=== PATIENT | female | born 1975 | race African-American/Black ===

== ENCOUNTER 2017-06-26 20:15 | Inpatient (IN) | payer OTHER ==
[2017-06-26 21:29] LABS: BASOPHIL 0.9 % (0-2.0); EOSINOPHIL 1.2 % (0-4.5); MCH 30.8 pg (25.7-33.7); MCHC 33.6 g/dl (32.0-36.0); MEAN CELL VOLUME 91.6 fl (80-96); MEAN PLT VOLUME 9.9 fl (7.5-11.1); NEUTROPHILS 65.3 % (42.8-82.8); PLATELET COUNT 147 K/MM3 (134-434); RDW 15.4 % (11.6-15.6); WHITE BLOOD COUNT 7.8 K/mm3 (4.0-10.0)
[2017-06-26 21:48] LABS: INR 0.92 (0.82-1.09); PROTHROMBIN TIME (PATIENT) 10.1 SEC (9.98-11.88)
[2017-06-26 21:51] LABS: ACTIVATED PTT 28.1 SECONDS (26.9-34.4); ANION GAP 8 (8-16); CALCIUM 9.3 mg/dL (8.5-10.1); CO2 23 mmol/L (21-32); CREATININE 0.8 mg/dL (0.55-1.02); GLUCOSE,RANDOM 137 mg/dL (74-106)
[2017-06-26 22:11] VITALS: BMI 25.8
[2017-06-26 22:28] LABS: HIV 1 & 2 AB NEGATIVE; HIV 1 AGp24 NEGATIVE
[2017-06-26] MEDS ORDERED: DINOPROSTONE 10 MG VAGINAL SUPPOSITORY VG ONE (22:55)
[2017-06-26] MEDS ORDERED: PROMETHAZINE HCL 25 MG/1 ML VIAL IVPUSH ONE (22:59)
[2017-06-26] MEDS ORDERED: BUTORPHANOL TARTRATE 1 MG/ML VIAL IVPB ONE (22:59)
--- NOTE | 2017-06-26 22:59 | HP ---
Past Medical History - Admission History of Present Illness: 42 yo @ 39 4/7 wks by first trimester ultrasound, EDC 06/29/2017 complicated by: 1. Hypothyroidism - hx/o Kassandra's disease 2. AMA - normal genetic screening 3. IVF 4. GBS positive Patient was seen today for routine ultrasound and noted to have oligohydramnios. She reports movement, denies leakage of fluid or vaginal bleeding. She denies contractions. History Source: Patient - Past Medical History Cardiovascular: No: HTN Pulmonary: No: Asthma Gastrointestinal: No: GERD ...: 2 ...Para: 0 ...Term: 0 ...: 0 ...Spon : 1 ...Induced : 0 ...Multiple Gestation: 0 ...EDC by [facility]: 06/29/17 Heme/Onc: No: Anemia Endocrine: Yes: Hypothyroidism - Past Surgical History Hx Myomectomy: No Hx Transabdominal Cerclage: No Additional Surgical History: 2012 - Laparscopic left ovarian cystectomy - Smoking History Smoking history: Never smoked Have you smoked in the past 12 months: No - Alcohol/Substance Use Hx Alcohol Use: No History of Substance Use: reports: None - Social History History of Recent Travel: No Home Medications - Allergies Allergies/Adverse Reactions: Allergies Allergy/AdvReac Type Severity Reaction Status Date / Time metronidazole [From Flagyl] Allergy Severe Hives Verified 06/26/17 21:20 Metronidazole HCl Allergy Severe Hives Verified 06/26/17 21:20 [From Flagyl] - Home Medications Home Medications: Ambulatory Orders Vitamins ([facility]) - [ .Vitamins *Rx*] 1 tab PO DAILY 01/20/13 Levothyroxine [Synthroid -] 100 mcg PO DAILY 04/23/17 Family Disease History - Family Disease History Family History: Denies Review of Systems - Review of Systems Constitutional: reports: No Symptoms Cardiovascular: reports: No Symptoms Respiratory: reports: No Symptoms Gastrointestinal: reports: No Symptoms Genitourinary: reports: No Symptoms Musculoskeletal: reports: No Symptoms Neurological: reports: No Symptoms Hematology/Lymphatic: reports: No Symptoms Psychiatric: reports: No Symptoms Physical Exam - Maternity Vital Signs: Vital Signs Temperature 98.7 F 06/26/17 22:00 Pulse Rate 73 06/26/17 22:00 Respiratory Rate 18 06/26/17 22:00 Blood Pressure 131/70 06/26/17 22:00 O2 Sat by Pulse Oximetry (%) Constitutional: Yes: Well Nourished, No Distress, Calm HENT: Yes: Atraumatic Cardiovascular: Yes: Regular Rate and Rhythm Lungs: Clear to auscultation - Abdominal Exam/OB Number of Fetuses: Single Presentation: Vertex Contractions: Yes Regularity: Irregular Monitor Mode: External Category: I Accelerations: Non-Uniform Decelerations: None - Vaginal Exam/OB Dilatation (cm): 1 Effacement (%): 80 Amniotic Membrane Status: Intact Station: -3 - Physical Exam Edema: No Psychiatric: Yes: Alert, Oriented - Labs Lab Results: CBC, BMP 06/26/17 21:00 06/26/17 21:00 PNL: B positive, antibody negative, RPR NR, Rubella Immune, GBS positive, HIV negative Hemorrhage Risk Assessment - Risk Factors Medium Risk Factors: Yes: None High Risk Factors: Yes: None Risk Score: 1 Risk Level: Medium Risk Assessment/Plan 42 yo @ 39 4/7 wks induction of labor for oligohydramnios 1. Admit to labor and delivery 2. Consents reviewed and signed. Risks including uterine hyperstimulation, heart rate changes, induction failure, need for delivery discussed. Patient expressed understanding. Cervidil placed in posterior fornix. 3. GBS positive - will start ampicillin in active labor 4. Hypothyroid - will order patient's medication 5. Will offer pain medication upon patient's request 6. Will proceed with expectant management.
[2017-06-26] MEDS ORDERED: TUBERCULIN PPD 5 TU/0.1ML SYRINGE (IN PATIENT USE ONLY) ID ONE (23:00)
[2017-06-26] MEDS ORDERED: DEXTROSE 5%-LACTATED RINGERS 1,000 ML IV ONE (23:01)
[2017-06-26] MEDS: DEXTROSE 5%-LACTATED RINGERS 1,000 ML IV SCH (23:45)
[2017-06-27 04:47] LABS: URINE APPEARANCE SLCLOUDY; URINE BILIRUBIN NEGATIVE (NEGATIVE); URINE BLOOD NEGATIVE (NEGATIVE); URINE COLOR YELLOW; URINE GLUCOSE (UA) NEGATIVE (NEGATIVE); URINE KETONE NEGATIVE (NEGATIVE); URINE LEUK ESTERASE TRACE (NEGATIVE); URINE NITRITE NEGATIVE (NEGATIVE); URINE PROTEIN NEGATIVE (NEGATIVE); URINE UROBILINOGEN NEGATIVE mg/dL (0.2-1.0)
[2017-06-27 04:49] LABS: URINE BACTERIA RARE /hpf (NONE SEEN); URINE MUCUS FEW; URINE RBC <1 /hpf (0-3); URINE WBC 4 /hpf (3-5)
[2017-06-27 05:18] LABS: URIC ACID 5.2 mg/dL (2.6-7.2)
[2017-06-27] MEDS: DEXTROSE 5%-LACTATED RINGERS 1,000 ML IV SCH ×2 (06:30→15:00)
[2017-06-27] MEDS: LEVOTHYROXINE NA 100 MCG TABLET (FP) PO SCH (08:00)
--- NOTE | 2017-06-27 11:18 | PN ---
Ante-Partal Exam - Subjective Subjective: Patient reports mild cramping No fevers, chills, chest pain, shortness of breath + FM No vaginal bleeding or pain Vital Signs: Vital Signs Temperature 98.9 F 06/27/17 10:00 Pulse Rate 63 06/27/17 10:00 Respiratory Rate 18 06/27/17 10:00 Blood Pressure 137/82 06/27/17 10:00 O2 Sat by Pulse Oximetry (%) Bleeding: No Headache: No Visual changes: No Right upper quadrant pain: No - Contractions Contractions: Yes Regularity: Irregular Intensity: Mild Monitor Mode: External - Exam during Labor Heart Rate: 150 Variability: Minimal, Moderate Monitor Accelerations: Present (<10 bpm) Monitor Decelerations: None Exam: Vaginal Dilatation (cm): 1 Effacement (%): 80 Amniotic Membrane Status: Intact Station: -3 - Intrapartum Hemorrhage Risk Medium Risk Factors: None High Risk Factors: None Risk Score: 0 Risk Level: Low Risk - Assessment/Plan Assessment/Plan: 42 yo IOL oligohydramnios 1. s/p Cervidil, minimal cervical change. Plan to start pitocin per protocol. 2. GBS positive, plan to start amplicilin in active labor 3. Category I FHT, however non-reactive (acceleration <15bpm), will plan for continuous monitoring 4. Will offer pain control upon patient request 5. will continue expectant management
[2017-06-27] MEDS ORDERED: OXYTOCIN 15 UNITS/ LR 250 ML 250 ML IVPB SCH (11:45)
[2017-06-27] MEDS ORDERED: AMPICILLIN - 100 ML IVPB ONE (14:20)
[2017-06-27] MEDS ORDERED: ELECTROLYTE-148 SOLN 1,000 ML IV SCH (19:30)
[2017-06-27] MEDS: AMPICILLIN - 100 ML IVPB SCH (20:00)
--- NOTE | 2017-06-27 21:23 | PN ---
Ante-Partal Exam - Subjective Subjective: Patient reports pain with contractions Vital Signs: Vital Signs Temperature 99.0 F 06/27/17 18:00 Pulse Rate 61 06/27/17 19:58 Respiratory Rate 20 06/27/17 19:58 Blood Pressure 158/93 06/27/17 19:58 O2 Sat by Pulse Oximetry (%) Bleeding: No Headache: No Visual changes: No Right upper quadrant pain: No - Contractions Contractions: Yes Intensity: Mod/Strong Monitor Mode: External - Exam during Labor Heart Rate: 150 Variability: Minimal, Moderate Category: I Monitor Accelerations: Absent Monitor Decelerations: None Exam: Vaginal Dilatation (cm): 7 Effacement (%): 100 Amniotic Membrane Status: Intact Station: -1 - Intrapartum Hemorrhage Risk Medium Risk Factors: None High Risk Factors: None Risk Score: 0 Risk Level: Low Risk - Assessment/Plan Assessment/Plan: 42 yo IOL oligohydramnios, active labor 1. Excellent cervical change, will continue pitocin per protocol 2. GBS positive, s/p 2 doses ampicillin 3. Category I FHT, however nonreactive (accels < 15 bpm) 4. NICU aware for delivery 5. Will offer epidural for pain control 6. Will proceed with expectant management
--- NOTE | 2017-06-27 22:37 | PN ---
Delivery - Delivery Vaginal Delivery: No Problems Type of Anesthesia: None Episiotomy/Laceration: 2nd degree EBL (cc): 300 Delivery, Single - Stages of Labor Date 1st Stage Initiatied: 06/27/17 Time 1st Stage Initiated: 17:57 Date 2nd Stage Initiated: 06/27/17 Time 2nd Stage Initiated: 21:30 Date of Delivery: 06/27/17 Time of Delivery: 21:48 Date Placenta Delivered: 06/27/17 Time Placenta Delivered: 22:20 Placenta: Yes: Manual Removal - Condition of Concrete Form Setter/E Commerce Director Present: Yes Infant Gender: Male Position: Left, OA Total Hours ROM (Hrs/Mins): 19 minutes - 1 Minute Total Score: 9 5 Minutes Total Score: 9 - [place] Feeding Plan Initial Plan: Elected not to breastfeed exclusively throughout hospitalization Remarks - Remarks Remarks: Patient progressed to fully dilated and at 2130 via delivered a viable male in NAYANA position, APGARs 9,9. Weight and length unknown at this time. Head delivered spontaneously followed by shoulders and body without difficulty. Meconium fluid noted. Infant with spontaneous cry and placed on mother's abdomen. Cord was clamped and cut, cord blood and gases collected and sent. handed to waiting NICU staff present. Perineum and vagina examined, a second degree laceration was noted and repaired in the usual fashion. Rectal exam revealed no sutures in rectum. Placenta was noted to be retained and manually extracted at 2220. 20 units of pitocin in 1 L IVF was given. All counts correct x 2. Mother and infant stable in LDR. EBL 300cc.
[2017-06-27] MEDS ORDERED: oxyCODONE HCL 5 MG TABLET PO PRN (22:46)
[2017-06-27] MEDS ORDERED: BENZOCAINE 28 GM HEMORRHOIDAL OINTMENT TP PRN (22:46)
[2017-06-27] MEDS ORDERED: ACETAMINOPHEN 325 MG TABLET (FP) PO PRN (22:46)
[2017-06-27] MEDS ORDERED: IBUPROFEN 600 MG TABLET (FP) PO PRN (22:46)
[2017-06-27] MEDS ORDERED: BENZOCAINE 20% 57 GM BOTTLE TP PRN (22:46)
[2017-06-27] MEDS ORDERED: BISACODYL 10 MG SUPP.RECT RC PRN (22:46)
[2017-06-27] MEDS ORDERED: METHYLERGONOVINE MALEATE 0.2 MG/1 ML AMP IM PRN (22:46)
[2017-06-27] MEDS ORDERED: WITCH HAZEL 50% (TUCKS) 40 PAD/JAR PAD TP PRN (22:46)
[2017-06-27] MEDS ORDERED: CEFAZOLIN 1 GM in DEXTROSE 5%-WATER - 50 ML IVPB ONE (22:48)
[2017-06-27] MEDS ORDERED: D5W-LR W/ 20 UNITS OXYTOCIN 1,000 ML IV SCH (23:00)
[2017-06-27 23:07] LABS: VENOUS BLOOD GAS HCO3 22.5 meq/L (19-25); VENOUS PH 7.32 (7.32-7.42)
[2017-06-28] MEDS: AMPICILLIN - 100 ML IVPB SCH (00:24)
[2017-06-28] MEDS: LEVOTHYROXINE NA 100 MCG TABLET (FP) PO SCH (06:36)
[2017-06-28] MEDS ORDERED: DIPHTH,PERTUSS(ACELL),TET 0.5 ML DISP.SYRIN IM ONE (10:00)
--- NOTE | 2017-06-28 10:33 | PN ---
Post Progress Note - Subjective Subjective: Patient without acute complaints. Reports tolerating oral intake without nausea or vomiting. Ambulating without dizziness. Denies fevers or chills. Pain well controlled with oral pain medication. without difficulty. Passing flatus. Post Day: 1 Type of Delivery: Vital Signs: Vital Signs Temperature 98.9 F 06/28/17 09:08 Pulse Rate 81 06/28/17 09:08 Respiratory Rate 20 06/28/17 09:08 Blood Pressure 126/76 06/28/17 09:08 O2 Sat by Pulse Oximetry (%) 100 06/27/17 23:30 Breast Exam: Yes: Engorged Uterus: Yes: Fundus Firm, Fundus below umbilicus Abdomen/GI: Yes: Abdomen soft, Passing flatus, Tolerating PO. No: Tender Lochia: Yes: Serosa Lochia, amount: Small Extremities: Yes: Calves non-tender. No: Edema Perineum: Yes: Laceration Activity: Ambulating - Labs Labs: CBC WBC 7.8 K/mm3 (4.0-10.0) 06/26/17 21:00 RBC 3.99 M/mm3 (3.60-5.2) 06/26/17 21:00 Hgb 12.3 GM/dL (10.7-15.3) 06/26/17 21:00 Hct 36.6 % (32.4-45.2) 06/26/17 21:00 MCV 91.6 fl (80-96) 06/26/17 21:00 MCH 30.8 pg (25.7-33.7) 06/26/17 21:00 MCHC 33.6 g/dl (32.0-36.0) 06/26/17 21:00 RDW 15.4 % (11.6-15.6) 06/26/17 21:00 Plt Count 147 K/MM3 (134-434) D 06/26/17 21:00 MPV 9.9 fl (7.5-11.1) 06/26/17 21:00 Neutrophils % 65.3 % (42.8-82.8) 06/26/17 21:00 Lymphocytes % 26.5 % (8-40) 06/26/17 21:00 Monocytes % 6.1 % (3.8-10.2) 06/26/17 21:00 Eosinophils % 1.2 % (0-4.5) 06/26/17 21:00 Basophils % 0.9 % (0-2.0) 06/26/17 21:00 Retic Count 1.47 % (0.5-1.5) 06/27/17 04:15 Haptoglobin 60 mg/dL (34-200) 06/27/17 04:15 Assessment/Plan 42 yo PPD #1 s/p , afebrile, vital signs stable, doing well 1. Continue routine care. 2. Follow up AM CBC 3. Rh positive status, no rhogam indicated. 4. Encourage ambulation 5. Continue oral pain medication 6. Anticipate discharge home day #2
[2017-06-28 11:44] LABS: BASOPHIL 0.3 % (0-2.0); EOSINOPHIL 0.1 % (0-4.5); MCH 30.4 pg (25.7-33.7); MCHC 32.7 g/dl (32.0-36.0); MEAN CELL VOLUME 92.7 fl (80-96); MEAN PLT VOLUME 10.9 fl (7.5-11.1); NEUTROPHILS 73.4 % (42.8-82.8); PLATELET COUNT 151 K/MM3 (134-434); RDW 15.2 % (11.6-15.6); WHITE BLOOD COUNT 15.7 K/mm3 (4.0-10.0)
[2017-06-28] MEDS ORDERED: SENNOSIDES/DOCUSATE COMBO (SENNA PLUS) TABLET (UD) PO PRN (22:00)
[2017-06-29] MEDS: LEVOTHYROXINE NA 100 MCG TABLET (FP) PO SCH (06:00)
[2017-06-29 08:12] VITALS: BP 126/89; PULSE 75; TEMP 98.3
--- NOTE | 2017-06-29 10:18 | PN ---
Post Progress Note - Subjective Subjective: Patient without acute complaints. Reports tolerating oral intake without nausea or vomiting. Ambulating without dizziness. Denies fevers or chills. Pain well controlled with oral pain medication. without difficulty. Passing flatus. Post Day: 2 Type of Delivery: Vital Signs: Vital Signs Temperature 98.3 F 06/29/17 08:10 Pulse Rate 75 06/29/17 08:10 Respiratory Rate 20 06/29/17 08:10 Blood Pressure 126/89 06/29/17 08:10 O2 Sat by Pulse Oximetry (%) 100 06/27/17 23:30 Breast Exam: Yes: Engorged Uterus: Yes: Fundus Firm, Fundus below umbilicus Abdomen/GI: Yes: Abdomen soft, Passing flatus, Tolerating PO. No: Tender Lochia: Yes: Serosa Lochia, amount: Small Extremities: Yes: Calves non-tender. No: Edema Perineum: Yes: Laceration Activity: Ambulating - Labs Labs: CBC WBC 15.7 K/mm3 (4.0-10.0) H D 06/28/17 06:00 RBC 3.56 M/mm3 (3.60-5.2) L 06/28/17 06:00 Hgb 10.8 GM/dL (10.7-15.3) D 06/28/17 06:00 Hct 33.0 % (32.4-45.2) 06/28/17 06:00 MCV 92.7 fl (80-96) 06/28/17 06:00 MCH 30.4 pg (25.7-33.7) 06/28/17 06:00 MCHC 32.7 g/dl (32.0-36.0) 06/28/17 06:00 RDW 15.2 % (11.6-15.6) 06/28/17 06:00 Plt Count 151 K/MM3 (134-434) 06/28/17 06:00 MPV 10.9 fl (7.5-11.1) D 06/28/17 06:00 Neutrophils % 73.4 % (42.8-82.8) 06/28/17 06:00 Lymphocytes % 19.3 % (8-40) D 06/28/17 06:00 Monocytes % 6.9 % (3.8-10.2) 06/28/17 06:00 Eosinophils % 0.1 % (0-4.5) D 06/28/17 06:00 Basophils % 0.3 % (0-2.0) 06/28/17 06:00 Retic Count 1.47 % (0.5-1.5) 06/27/17 04:15 Haptoglobin 60 mg/dL (34-200) 06/27/17 04:15 Assessment/Plan 42 yo PPD #2 s/p , afebrile, vital signs stable, doing well 1. Patient stable for discharge home today. 2. Patient encouraged to contact MD for: - Severe pain not controlled by oral pain medication - Fevers or chills - Nausea or vomiting, intolerance of oral intake 3. Patient to follow up in office in 4-6 weeks for visit
--- NOTE | 2017-06-29 10:19 | DS ---
Physical Exam-[employer] OPERATOR Vital Signs: Vital Signs Temperature 98.3 F 06/29/17 08:10 Pulse Rate 75 06/29/17 08:10 Respiratory Rate 20 06/29/17 08:10 Blood Pressure 126/89 06/29/17 08:10 O2 Sat by Pulse Oximetry (%) 100 06/27/17 23:30 Labs: CBC, BMP 06/28/17 06:00 06/26/17 21:00 Delivery - Delivery Vaginal Delivery: No Problems Type of Anesthesia: Local Episiotomy/Laceration: 2nd degree EBL (cc): 300 Delivery, Single - Stages of Labor Date 1st Stage Initiatied: 06/27/17 Time 1st Stage Initiated: 17:57 Date 2nd Stage Initiated: 06/27/17 Time 2nd Stage Initiated: 21:30 Date of Delivery: 06/27/17 Time of Delivery: 21:48 Time Placenta Delivered: 22:20 Placenta: Yes: Manual Removal - Condition of Scale Clerk/Culinary Director Present: Yes Name: Clarissa Bell Infant Gender: Male Weight: 6 lb 2 oz Position: Left, OA Total Hours ROM (Hrs/Mins): 19 minutes - 1 Minute Total Score: 9 5 Minutes Total Score: 9 - [place] Feeding Plan Initial Plan: Elected not to breastfeed exclusively throughout hospitalization Discharge Summary Reason For Visit: INDUCTION OF LABOR Procedures: Principal: vaginal delivery Other Procedures: induction of labor, oligohydramnios Hospital Course: she remained afebrile, vital signs stable, doing well Condition: Good - Instructions Diet, Activity, Other Instructions: Physical activity Resume your normal everyday activity as tolerated no heavy lifting or exercise until seen by your surgeon. You may walk unlimited sharyn of and climb stairs. You may resume driving the car when you feel safe and comfortable behind the wheel. No sexual activity as instructed. Diet There are no dietary restrictions. Eat healthy, high-fiber foods. Drink 6 to 8 glasses of liquid each day. This will assist in keeping your bowels are regular. Pain management You may take Tylenol or acetaminophen or Ibuprofen (for example, Motrin, Advil etc.) from my pain prescription medication is ordered should be taken as prescribed for moderate to severe pain. Call MD for any of the following: Severe pain not relieved by medication Fever of 101 or higher Excessive bleeding or drainage on dressing Inability to urinate return to office in 6 weeks for check. call for appointment.- Referrals: Kierra Diamond MD [Staff Physician] - - Home Medications Comprehensive Discharge Medication List: Ambulatory Orders Vitamins (Sjr) - [ .Vitamins *Rx*] 1 tab PO DAILY 01/20/13 Levothyroxine [Synthroid -] 100 mcg PO DAILY 04/23/17
[2017-06-29 10:26] LABS: BASOPHIL 1.1 % (0-2.0); MCH 30.3 pg (25.7-33.7); MCHC 32.9 g/dl (32.0-36.0); MEAN PLT VOLUME 9.2 fl (7.5-11.1); NEUTROPHILS 70.6 % (42.8-82.8); PLATELET COUNT 159 K/MM3 (134-434); RDW 15.5 % (11.6-15.6); WHITE BLOOD COUNT 15.5 K/mm3 (4.0-10.0)
== END 2017-06-29 13:15 | disposition home or self-care (01) | DRG 775 ==
LOC: JLDR 20:15 → J3W 06-28 00:25
PROVIDERS: ADMIT Obstetrics & Gynecology; ATTEND Obstetrics & Gynecology
PROC: 3E0P7GC Introduction of Other Therapeutic Substance into Female Reproductive, Via Natural or Artificial Opening (ICD-10-PCS; 2017-06-26)
PROC: 10E0XZZ Delivery of Products of Conception, External Approach (ICD-10-PCS; principal; 2017-06-27)
PROC: 0KQM0ZZ Repair Perineum Muscle, Open Approach (ICD-10-PCS; 2017-06-27)
PROC: 0W8NXZZ Division of Female Perineum, External Approach (ICD-10-PCS; 2017-06-27)
DX: O70.1 Second degree perineal laceration during delivery (principal); Z37.0 Single live birth; O41.03X0 Oligohydramnios, third trimester, not applicable or unspecified; O99.284 Endocrine, nutritional and metabolic diseases complicating childbirth; E03.9 Hypothyroidism, unspecified; Z3A.39 39 weeks gestation of pregnancy; Z22.330 Carrier of Group B streptococcus
CPT/HCPCS: 36415; 59409; 80048; 81003; 81015; 82803; 82977; 83010; 84450; 84460; 84550; 85025; 85044; 85610; 85730; 86593; 86850; 86900; 86901; 87340; 87389; 90715